=== PATIENT | female | born 2000 | race African-American/Black ===

== ENCOUNTER 2020-05-06 10:23 | Emergency (ER) | payer MEDICAID ==
[~2020-05-06] VITALS: Ht 167.6 cm; Wt 68.0 kg
[2020-05-06] MEDS ORDERED: ONDANSETRON HCL 4MG/2ML INJ IV STA (10:38)
[2020-05-06] MEDS ORDERED: FAMOTIDINE 20MG/2ML VIAL IV STA (10:38)
[2020-05-06] MEDS ORDERED: SODIUM CHLORIDE 0.9% 1,000 ML IV ONE (10:38)
[2020-05-06] MEDS ORDERED: MORPHINE SULFATE 4 MG/ML CPJ (NOT FOR IM USE) IV STA (10:38)
[2020-05-06 11:48] LABS: CLARITY URINE CLOUDY (CLEAR); COLOR URINE YELLOW (YELLOW); KETONES URINE 3+ (NEGATIVE); LEUKOCYTE ESTERASE URINE 1+ (NEGATIVE); NITRITE URINE NEGATIVE (NEGATIVE); OCCULT BLOOD URINE NEGATIVE (NEGATIVE); PROTEIN URINE 1+ (NEGATIVE); SPECIFIC GRAVITY URINE 1.035 (1.005-1.030)
[2020-05-06 11:54] LABS: CHLORIDE 107 mEq/L (98-107)
[2020-05-06 11:55] LABS: HEMATOCRIT. 44.4 % (36.0-48.0); HEMOGLOBIN. 14.8 g/dL (12.0-16.0); MEAN CORPUSCULAR HEMOGLOBIN 30.6 pg (28.0-32.0); MEAN CORPUSCULAR VOLUME 91.5 fL (81.0-99.0); MEAN PLATELET VOLUME 9.1 fl (7.4-10.4); PLATELET 281 x1000/uL (130-400); RED BLOOD CELL COUNT 4.85 mill/uL (4.2-5.4)
[2020-05-06 11:56] LABS: INR 0.9; PROTHROMBIN TIME 9.5 sec (9.6-11.0)
[2020-05-06 11:59] LABS: ETHANOL BLOOD < 10 mg/dL
[2020-05-06 12:03] LABS: HCG SCREEN NEGATIVE
[2020-05-06 12:07] LABS: *BARBITURATES SCREEN URINE NEGATIVE (NEGATIVE); *COCAINE SCREEN URINE NEGATIVE (NEGATIVE)
[2020-05-06 12:08] LABS: *AMPHETAMINES SCREEN URINE NEGATIVE (NEGATIVE); *BENZODIAZEPINES SCREEN URINE NEGATIVE (NEGATIVE); METHADONE URINE SCREEN NEGATIVE (NEGATIVE); OPIATES URINE SCREEN NEGATIVE (NEGATIVE); PHENCYCLIDINE URINE SCREEN NEGATIVE (NEGATIVE)
[2020-05-06 12:11] LABS: CANNABINOID URINE SCREEN PRESUMTIVE POSITIVE (NEGATIVE)
[2020-05-06 13:29] LABS: PLATELET ESTIMATE NORMAL
[2020-05-06 14:05] VITALS: BP 101/62
== END 2020-05-06 14:57 | disposition home or self-care (01) ==
LOC: ER 10:23
DX: R10.9 Unspecified abdominal pain (principal); R11.10 Vomiting, unspecified; F41.9 Anxiety disorder, unspecified
CPT/HCPCS: 36415; 76705; 80053; 80305; 80320; 81003; 81025; 83690; 84703; 85025; 85610; 96361; 96374; 96375; 99284; J2270; J2405; J3490; J7030; G0480